=== PATIENT | female | born 1980 | race Two or more races ===

== ENCOUNTER 2018-12-06 18:33 | Emergency (ER) | payer OTHER ==
[~2018-12-06] VITALS: Ht 149.9 cm; Wt 38.6 kg
== END 2018-12-06 21:52 | disposition home or self-care (01) ==
LOC: ER 18:33
DX: K80.20 Calculus of gallbladder without cholecystitis without obstruction (principal); R10.32 Left lower quadrant pain; M25.552 Pain in left hip